=== PATIENT | female | born 1955 | race Caucasian/White ===

== ENCOUNTER 2016-06-14 | Emergency (ER) | payer OTHER ==
[~2016-06-14] MED LIST: ALEVE220 M3 PO; ALEVE220 MG; ASCRIPTIN 325325 MG PO; ASPIRIN325 MG; AZITHROMYCIN250 MG; CALCIUM 600 +1 EAC2 PO; CELEXA20 M2 PO; CELEXA20 MG PO; DAILY MULTIPLE1 EAC2 PO; ENBREL50 MG/1 ML SQ; ENBREL50 MG/ML SQ; EPA-DHA SOFTGEL1 CAP; FISH OIL 1,2001 CAP PO; GLUCOPHAGE XR500 MG; GLUCOPHAGE1000 MG; GLUCOPHAGE500 MG PO; H; H PO; HUMIRA40 MG/0.8 SQ; HYZAAR 50-12.51 TA1 PO; LEXAPRO10 MG; LOPRESSOR25 MG/TA7 PO; LOPRESSOR25 MG/TAB PO; LOSARTAN-HCTZ1 EAC4 PO; LOSARTAN-HCTZ1 EACH PO; LOVENOX40 MG/0.4 SQ; MAGNESIUM250 M2 PO; METFORMIN HCL500 M2 PO; MULTIVITAMIN1 TAB; NOSE SPRAY; PERCOCET 5MG/AP1 TA1 PO; SINGULAIR10 M1 PO; TACLONEX OINTME60 GM; TOPROL XL25 M1 PO; TYLENOL; TYLENOL500 MG; VANCOMYCIN; VITAMIN B-12100 MC1 PO; VITAMIN B12500 MCG PO; VITAMIN B6100 MG PO; VITAMIN D3400 UNI1 PO; VITAMIN D3400 UNI5 PO; XARELTO10 MG PO; XYZAL5 MG; [UNRECOGNIZED DRUG - OTHER] PO
[2016-06-14] MEDS ORDERED: GLUCOTROL XL2.5 M1 PO (20:27)
== END 2016-06-14 23:00 ==
DX: S71.111A Laceration without foreign body, right thigh, initial encounter (principal); W26.0XXA Contact with knife, initial encounter; Y92.019 Unspecified place in single-family (private) house as the place of occurrence of the external cause